=== PATIENT | female | born 1980 | race Caucasian/White ===

== ENCOUNTER 2016-05-12 14:46 | Outpatient (CLI) | payer OTHER ==
--- NOTE | 2016-05-12 15:43 | DIAGNOSTIC IMAGING REPORT ---
PROCEDURE: US COMPLETE PELVIC W/TRANSVAG INDICATION: PELVIC PAIN TECHNIQUE: Transabdominal and endovaginal franco scale and color Doppler sonographic images of the female pelvis were obtained. COMPARISON: None. FINDINGS: TRANSABDOMINAL SCANS: The uterus is of normal size as 6.8 x 3.8 x 3.8 cm Kidneys are normal. TRANSVAGINAL SCANS: The uterus is slightly retroflexed. Myometrium is normal. The endometrium measures 5.9 mm. Right ovary is normal measuring 2.4 x 3.2 x 2.1 cm The left ovary is normal measuring 2.5 x 1.1 x 1.6 cm IMPRESSION: 1. Normal uterus and ovaries and kidneys.
== END 2016-05-12 23:00 ==
LOC: US SRH 14:46
DX: N93.9 Abnormal uterine and vaginal bleeding, unspecified (principal)